=== PATIENT | male | born 1970 | race Caucasian/White ===

== ENCOUNTER 2024-02-20 18:57 | Emergency (ER) | payer OTHER, SELFPAY ==
[2024-02-20 19:01] VITALS: BP 138/92; PULSE 85; TEMP 36.6; BMI 27.9
--- NOTE | 2024-02-20 19:13 | XR_ITS ---
The [address] [address] Patient Name: PAULIE MOHR MRN: [id number] date: 1970 Sex: M Assigned Patient Location: ER Current Patient Location: ED.MAIN Accession/Order Number: [id number] Exam Date: 02/20/2024 19:20 Report Date: 02/20/2024 20:40 At the request of: ELANA COX Procedure: XR hand RT min 3V EXAM: XR hand RT min 3V, XR wrist RT min 3V HISTORY: The patient is a 53-year-old male, crush injury COMPARISON: None. FINDINGS: The right hand and wrist are radiographically negative with no evidence of fracture, dislocation, joint space narrowing, osteophytes, or other osseous or articular abnormalities. XR/XR hand RT min 3V IMPRESSION: Negative. Electronically authenticated by: AUDELIA WILSON Date: 02/20/2024 20:40
--- NOTE | 2024-02-20 19:13 | XR_ITS ---
The [address] [address] Patient Name: PAULIE MOHR MRN: [id number] date: 1970 Sex: M Assigned Patient Location: ER Current Patient Location: ED.MAIN Accession/Order Number: [id number] Exam Date: 02/20/2024 19:20 Report Date: 02/20/2024 20:40 At the request of: ELANA COX Procedure: XR wrist RT min 3V EXAM: XR hand RT min 3V, XR wrist RT min 3V HISTORY: The patient is a 53-year-old male, crush injury COMPARISON: None. FINDINGS: The right hand and wrist are radiographically negative with no evidence of fracture, dislocation, joint space narrowing, osteophytes, or other osseous or articular abnormalities. XR/XR wrist RT min 3V IMPRESSION: Negative. Electronically authenticated by: AUDELIA WILSON Date: 02/20/2024 20:40
--- NOTE | 2024-02-20 19:17 | ED_ITS ---
HPI HPI - Extremity Injury (Upper) General Chief Complaint: Extremity Injury, Upper Stated Complaint: Extremity Injury, Upper Time Seen by Provider: 02/20/24 19:11 Source: patient Mode of arrival: walk-in Limitations: no limitations History of Present Illness HPI narrative: Patient is a 53-year-old male who presents to the emergency department for right hand crush injury that occurred at work about 1 hour ago. He states his hand was crushed between steel plates. He is right-hand dominant. No medications prior to arrival. He reports some pain in the right wrist but most of his pain is located over the first, second, third metacarpals of the right hand. No paresthesia Related Data Home Medications ?Medication ?Instructions ?Recorded ?Confirmed aspirin 81 mg capsule 81 mg PO DAILY 02/20/24 02/20/24 hydrocodone 5 mg-acetaminophen 325 1 tab PO Q6H PRN pain 02/20/24 02/20/24 mg tablet methocarbamol 750 mg tablet 750 mg PO Q8H PRN muscle spasm 02/20/24 02/20/24 omeprazole 20 mg capsule,delayed 20 mg PO DAILY 02/20/24 02/20/24 release Previous Rx's ?Medication ?Instructions ?Recorded hydrocodone 5 mg-acetaminophen 325 1 tab PO Q6H PRN pain 2 days #6 02/20/24 mg tablet tabs ketorolac 10 mg tablet 10 mg PO TID PRN pain #10 tabs 02/20/24 Allergies Allergy/AdvReac Type Severity Reaction Status Date / Time No Known Drug Allergies Allergy Verified 02/20/24 19:01 Opioid HPI Opioid Management Most Recent Pain and Opioid Data: Last Pain Scale 8 02/20/24 19:20 Last ED Pain Assessment 02/20/24 19:20 Review of Systems ROS Constitutional Denies: fever or chills Ears, nose, mouth, and throat Denies: throat pain or nasal congestion Respiratory Denies: shortness of breath Gastrointestinal Denies: nausea or vomiting Musculoskeletal Denies: back pain Integumentary/Breast Denies: rash Hematologic/Lymphatic Denies: easy bruising or easy bleeding PFSH PFSH Social History Little interest or pleasure in doing things: not at all Feeling down, depressed, or hopeless: not at all Exam Narrative Exam Narrative: Gen.: Awake, alert, in no distress Head: Normocephalic, atraumatic ENT: Moist mucous membranes Respiratory: No respiratory distress Extremities: Limited range of motion of the fingers of the right hand due to pain with superficial abrasion noted to the dorsum of the right hand. Diffuse mild tenderness of the dorsum of the right wrist with no obvious deformity Psych: Normal mood and affect Neuro: No focal neuro deficit Skin: Warm, dry, intact Constitutional Vital Signs, click to edit/add: Last Vital Signs Temp 97.8 F 02/20/24 19:01 Pulse 85 02/20/24 19:01 Resp 18 02/20/24 19:01 BP 138/92 H 02/20/24 19:01 Course Vital Signs Vital signs: Vital Signs Temperature 97.8 F 02/20/24 19:01 Pulse Rate 85 02/20/24 19:01 Respiratory Rate 18 02/20/24 19:01 Blood Pressure 138/92 H 02/20/24 19:01 Temperature 97.8 F 02/20/24 19:01 Pulse Rate 85 02/20/24 19:01 Respiratory Rate 18 02/20/24 19:01 Blood Pressure 138/92 H 02/20/24 19:01 MDM - Extremity Injury (Upper) MDM Narrative Medical decision making narrative: X-rays of the right hand and wrist with no evidence of fracture or dislocation. Patient placed in an Harsh wrap and remains neurovascularly intact. Rest, ice, elevate. Follow-up with occupational health. Short course of analgesics and NSAIDs given for home. SUPERVISED APC VISIT, PHYSICIAN ATTESTATION: Based on the medical record the care appears appropriate. ? Medical Records Attestation: I reviewed the patient's medical records. Imaging Data xr hand: Attestation: I have reviewed the pertinent imaging results. Radiologist's impression: ITS Impressions Hand X-Ray 02/20/24 19:13 IMPRESSION: Negative. Electronically authenticated by: AUDELIA WILSON Date: 02/20/2024 20:40 Wrist X-Ray 02/20/24 19:13 IMPRESSION: Negative. Electronically authenticated by: AUDELIA WILSON Date: 02/20/2024 20:40 Discharge Plan Discharge Chief Complaint: Extremity Injury, Upper Clinical Impression: Crushing injury of right hand, Contusion of right hand Patient Disposition: Home, Self-Care Prescriptions / Home Meds: New hydrocodone-acetaminophen 5-325 mg tablet 1 tab PO Q6H PRN (Reason: pain) 2 Days Qty: 6 0RF Rx Instructions: DX: S60.221A ketorolac 10 mg tablet 10 mg PO TID PRN (Reason: pain) Qty: 10 0RF No Action omeprazole 20 mg capsule,delayed release(DR/EC) 20 mg PO DAILY hydrocodone-acetaminophen 5-325 mg tablet 1 tab PO Q6H PRN (Reason: pain) methocarbamol 750 mg tablet 750 mg PO Q8H PRN (Reason: muscle spasm) aspirin 81 mg capsule 81 mg PO DAILY Print Language: Italian Instructions: Contusion in Adults (ED), Crush Injury (ED) Referrals: [facility]Outside] - As soon as possible Discharge Date/Time: 02/20/24 21:17
--- NOTE | 2024-02-20 19:23 | PC.NURSE ---
note a visible abrasion to right hand, no visible active bleeding. this patient's right hand 8/10 sharp
[2024-02-20] MEDS: KETOROLAC TROMETHAMINE 10 MG TABLET PO (19:28)
== END 2024-02-20 21:17 | disposition home or self-care (01) ==
PROVIDERS: Emergency Provider Emergency Medicine; PCP Family Medicine
DX: S67.21XA Crushing injury of right hand, initial encounter (principal); S60.221A Contusion of right hand, initial encounter; W31.9XXA Contact with unspecified machinery, initial encounter
CPT/HCPCS: 73110; 73130; 99283

== ENCOUNTER 2024-03-29 13:18 | Outpatient (OUT) | payer OTHER, SELFPAY ==
--- NOTE | 2024-03-29 13:34 | CT_ITS ---
The [address] [address] Patient Name: PAULIE MOHR MRN: [id number] date: 1970 Sex: M Assigned Patient Location: CT Current Patient Location: Accession/Order Number: [id number] Exam Date: 03/29/2024 13:43 Report Date: 04/01/2024 10:30 At the request of: CHARBEL OSHEA Procedure: CT hand RT wo con CT hand RT wo con, 03/29/2024 1:43 PM EDT INDICATION: Crush Injury Right Hand COMPARISON: Prior x-ray of the right hand and wrist dated 02/20/2024 TECHNIQUE: axial images of 1 mm are obtained from right hand and wrist with coronal and sagittal reconstructions without contrast. Dose reduction techniques were achieved by using automated exposure control and/or adjustment of mA and/or kV according to patient size and/or use of iterative reconstruction technique. FINDINGS: No acute fracture or dislocation is noted. There is no soft tissue abnormality. No suspicious osteolytic or osteoblastic lesion is noted.] [ Vacuum phenomena anterior the scaphoid lunate joint, nonspecific. CT/CT hand RT wo con IMPRESSION: No acute fracture or dislocation is noted. Electronically authenticated by: KORI NANCE Date: 04/01/2024 10:30
== END 2024-03-29 13:19 | disposition home or self-care (01) ==
LOC: CT 13:21
PROVIDERS: PCP Family Medicine; Visit Provider Nurse Practitioner Family
DX: S67.21XA Crushing injury of right hand, initial encounter (principal)
CPT/HCPCS: 73200